=== PATIENT | female | born 1930 | race Caucasian/White ===

== ENCOUNTER 2019-01-03 20:14 | Inpatient (IN) | payer MEDICARE ==
[~2019-01-03] VITALS: Ht 165.1 cm; Wt 88.1 kg
[2019-01-03] VITALS (8 sets, daily range): BP systolic 109–159; BP diastolic 59–90
--- NOTE | ~2019-01-03 | EKG ---
[place], [place] ELECTROCARDIOGRAM REPORT NAME: WILLIS JEAN UNIT #: [id number] ROOM: 505 DOCTOR: FLORY DRAFT REPORT BIRTHDATE: [birth year] [facility] Test Date: 2019-01-03 Test Time: 22:37:50 Pat Name: WILLIS JEAN Department: Room: 505 Gender: F Chili Pepper Grinder: DISHA GIVENS : 1930 Requested By: ANNE IBARRA Order Number: [id number] Reading MD: Yanira Aponte MD Measurements Intervals [place] Rate: 74 P: CT: QRS: -63 QRSD: 155 T: 126 QT: 428 QTc: 475 Interpretive Statements Afib/flut and V-paced complexes No further analysis attempted due to paced rhythm Electronically Signed On 01-04-2019 17:31:39 PDT by Yanira Aponte MD CM:EKGRPT:ELECTROCARDIOGRAM REPORT 1731 ANNE HARMON DRAFT REPORT ANNE IBARRA DO
--- NOTE | ~2019-01-03 | EKG ---
[place], [place] ELECTROCARDIOGRAM REPORT NAME: WILLIS JEAN UNIT #: [id number] ROOM: 505 DOCTOR: FLORY DRAFT REPORT BIRTHDATE: [birth year] [facility] Test Date: 2019-01-03 Test Time: 20:30:42 Pat Name: WILLIS JEAN Department: Room: 505 Gender: F [employer] Network Analyst: : 1930 Requested By: ANNE IBARRA Order Number: [id number] Reading MD: Yanira Aponte MD Measurements Intervals [place] Rate: 88 P: 0 TX: 153 QRS: -70 QRSD: 154 T: -55 QT: 408 QTc: 494 Interpretive Statements Ventricular-paced complexes No further analysis attempted due to paced rhythm Electronically Signed On 01-04-2019 17:31:19 PDT by Yanira Aponte MD CM:EKGRPT:ELECTROCARDIOGRAM REPORT [id number] 1731 ANNE HARMON DRAFT REPORT ANNE IBARRA DO
--- NOTE | ~2019-01-03 | EKG ---
[place], [place] ELECTROCARDIOGRAM REPORT NAME: WILLIS JEAN UNIT #: [id number] ROOM: 505 DOCTOR: FLORY DRAFT REPORT BIRTHDATE: [birth year] [facility] Test Date: 2019-01-04 Test Time: 02:37:01 Pat Name: WILLIS JEAN Department: Room: 505 Gender: F Milk Deliverer: David Box : 1930 Requested By: ANNE IBARRA Order Number: [id number] Reading MD: Yanira Aponte MD Measurements Intervals [place] Rate: 69 P: 0 HI: 79 QRS: -77 QRSD: 174 T: -62 QT: 323 QTc: 346 Interpretive Statements Ventricular-paced rhythm No further analysis attempted due to paced rhythm Baseline wander in lead(s) V5 Electronically Signed On 01-04-2019 17:32:41 PDT by Yanira Aponte MD CM:EKGRPT:ELECTROCARDIOGRAM REPORT [id number] 1732 ANNE HARMON DRAFT REPORT ANNE IBARRA DO
--- NOTE | 2019-01-03 20:14 | NUR ---
PLACED PATIENT ON BIPAP PER DOCTORS ORDERS. 19/10, BU 8, 100% O2. SPO2 99%, HR 74. ALARMS ON AND FUNCTIONING
[2019-01-03 20:27] LABS: BASO # 0.1 10*3/uL (0.0-0.1); BASO % 0.3 % (0.0-1.0); EOS # 0.2 10*3/uL (0.0-0.4); EOS % 1.5 % (1.0-4.0); HEMATOCRIT 39.2 % (37.0-47.0); HEMOGLOBIN 12.3 g/dl (12.0-16.0); LYMPH # 1.6 10*3/uL (1.3-4.4); LYMPH % 10.8 % (27.0-41.0); MEAN CELL VOLUME 95.6 fl (81.0-99.0); MEAN CORPUSCULAR HGB CONC 31.4 g/dl (33.0-37.0); MEAN PLATELET VOLUME 8.9 fl (9.6-12.3); MONO # 0.9 10*3/uL (0.1-1.0); MONO % 6.3 % (3.0-9.0); NEUT # 11.6 10*3/uL (2.3-7.9); NEUT % 80.8 % (47.0-73.0); PLATELET COUNT AUTOMATED 177 10*3/uL (130-400); RED CELL DISTRI WIDTH 13.3 % (0-14.5); WHITE BLOOD COUNT 14.4 10*3/uL (4.8-10.8)
[2019-01-03 20:43] LABS: ALBUMIN 3.4 gm/dl (3.1-4.5); ALKALINE PHOSPHATASE 138 U/L (45-117); BUN 32 mg/dl (7-24); CHLORIDE 104 mmol/L (98-107); CREATININE 1.81 mg/dL (0.55-1.02); POTASSIUM 4.3 mmol/L (3.5-5.1); SGOT/AST 19 IU/L (3-35); SGPT/ALT 21 U/L (12-78); SODIUM 137 mmol/L (136-145); TOTAL PROTEIN 7.8 gm/dL (6.4-8.2)
[2019-01-03 20:44] LABS: TROPONIN I < 0.015 ng/ml (<0.045)
[2019-01-03 20:47] LABS: ACT PARTIAL THROMBO TIME 29.5 SECONDS (20.0-32.1); INTERNATIONAL NORM RATIO 1.1 (2.0-3.5)
--- NOTE | 2019-01-03 22:44 | NUR ---
BIPAP REMOVED PER ORDERS BY RESPIRATORY, PT TOLERATING WELL
[2019-01-04] VITALS (7 sets, daily range): BP systolic 98–133; BP diastolic 41–76
--- NOTE | 2019-01-04 00:45 | NUR ---
A 88 YEAR OLD FEMALE PATIENT, admitted to 5E, under the services of JOHNNY Sabillon DO with a diagnosis of HYPOXEMIA,COPD,ACUTE PULMONARY EDEMA. Chief complaint is .WORSENING SHORTNESS OF BREATH Patient arrived via CART WITH RN from ER. Monitor applied. Initial assessment completed. Vital signs taken and recorded. See assessment for past medical history, medications and allergies. Patient and/or family oriented to unit. [facility] reviewed. Clothing/patient valuable form completed. DAVY GALINDO
[2019-01-04] MEDS ORDERED: METOPROLOL SUCC25 M2 PO (01:25)
[2019-01-04] MEDS ORDERED: SEROQUEL50 MG PO (01:25)
[2019-01-04] MEDS ORDERED: CARDIZEM LA240 MG PO (01:26)
[2019-01-04] MEDS ORDERED: LASIX20 MG PO (01:27)
[2019-01-04] MEDS ORDERED: PRAVASTATIN SOD40 MG PO (01:27)
[2019-01-04] MEDS ORDERED: ISOSORBIDE MON120 MG PO (01:28)
[2019-01-04] MEDS ORDERED: LEVOXYL100 MCG PO (01:28)
[2019-01-04] MEDS ORDERED: ALDACTONE25 M1 PO (01:33)
[2019-01-04] MEDS ORDERED: NOVOLOG 70/30 M10 ML SC (01:33)
--- NOTE | 2019-01-04 10:01 | NUR ---
Occupational therapy orders receieved and OT evaluation completed in full on floor five. Patient precautions include 3L02 and TRIBE. Patient is OT evaluation only. Patient demonstrated independent ADLs, functional transfers, mobility, and feeding. Patient notified of d/c from OT orders and was agreeable. Patient and her family members did not have any questions. Per OT eval, patient to return home. Patient stated she does not need OT HH services at this time. Patient complexity is low, 64013. Thank you for the referral. Alexus Orellana, OTR/L
--- NOTE | 2019-01-04 11:28 | NUR ---
BP THIS MORNING 98/48, REPEAT BP AT THIS TIME 128/76. PER SHANTAL JEFF AND JENNIFER TO BE HELD TODAY.
--- NOTE | 2019-01-04 11:29 | NUR ---
PHYSICAL THERAPY Physical therapy screen completed. Patient's family member present in room. Pt and Pt family member reports she does her exercises diligently when she is at home. She is independent with all ADLs and ambulation using a FWW. she gets up to go to the bathroom herself. Pt and family member expressing no concerns. No PT needs at this time. Thank you, Eunice Escalona, PT, DPT
--- NOTE | 2019-01-04 13:10 | NUR ---
Director Of Orthopedics in to talk to patient. Patient states lives at HOME with ALONE. There are 2 OUTSIDE steps in the home. Physician: SHASHI Pharmacy: [facility] Home health services: NONE Patient's level of ADLs: INDEPENDENT Patient has working utilities: YES DME: OXYGEN 2L AT HS, COMPANY IS [employer] Follow-up physician's appointment after d/c: WILL BE MADE BY HOSPITALIST NURSE DIRECTOR ON DISCHARGE Does patient want to access PORTAL?: NO Discharge plan PT LIVES AT HOME ALONE AND IS INDEPENDENT IN HER CARE. PT STILL DRIVES AND IS ABLE TO CARE FOR HERSELF AT HOME. TALKED WITH PT ABOUT HOME HEALTH BUT PT REFUSES. STATES IF SHE NEEDS HELP SHE HAS FRIENDS AND FAMILY TO HELP HER. WILL CONTINUE TO FOLLOW. WILL HAVE A RIDE HOME PER PT.. MENDY THOMPSON
--- NOTE | 2019-01-04 13:17 | NUR ---
[facility] OFFICE STAFF NOTIFIED OF CONSULT RE: ARIEL
--- NOTE | 2019-01-04 14:00 | NUR ---
BEDSIDE GLUCOSE RESULT >600 X 2 TESTS, ORDERING STAT REFLEX GLUCOSE PER POLICY. PATIENT C/O SOB, SHAKING, 32 RESPIRATIONS/MINUTE, POX 91%-O2 FOUND NOT CONNECTED TO THE WALL. RECONNECTED O2 AT 2LPM PREVIOUSLY, POSITIONED WITH HOB UP, PATIENT STATES HAS MUCH RELIEF WITH THIS.
--- NOTE | 2019-01-04 14:47 | NUR ---
DR. BARTON NOTIFIED OF STAT REFLEX GLUCOSE RESULT OF 667. HE IS ENTERING NEW ORDERS.
--- NOTE | 2019-01-04 20:29 | NUR ---
Neurological: AAOX3-KIVALINA Respiratory: NONLABORED, 2L VIA NC, OLGUIN Breath sounds: DIMINISHED T/O, POOR AIR EXCHANGE Cough: NONE NOTED Cardiovascular: BLE EDEMA L<R, DENIES CP/PRESSURE, PP+ Gastrointestinal: NORMOACTIVE X4 QUADS, DENIES N/V/D/C, SOFT/NONTENDER/NONDISTENDED Genito/Urinary: DENIES DYSURIA Musculoskeketal: AMBULATORY, SKIN INTACT RESTING IN BED WITH NO C/O OR S/S OF DISTRESS NOTED AT THIS TIME BED IS LOW, LOCKED, AND CALL LIGHT IS WITHIN REACH WILL CONTINUE TO MONITOR, SEE SHIFT ASSESSMENT. MELY CASTANON A
[2019-01-05] VITALS: BP 120/70
[2019-01-05 06:28] LABS: POTASSIUM 4.2 mmol/L (3.5-5.1)
[2019-01-05 06:29] LABS: BASO % 0.1 % (0.0-1.0); HEMATOCRIT 36.4 % (37.0-47.0); HEMOGLOBIN 11.8 g/dl (12.0-16.0); MEAN CORPUSCULAR HGB 29.7 pg (27.0-31.0); MEAN CORPUSCULAR HGB CONC 32.4 g/dl (33.0-37.0); MEAN PLATELET VOLUME 9.8 fl (9.6-12.3); MONO # 0.5 10*3/uL (0.1-1.0); MONO % 3.3 % (3.0-9.0); NEUT # 14.6 10*3/uL (2.3-7.9); PLATELET COUNT AUTOMATED 178 10*3/uL (130-400); RED BLOOD COUNT 3.97 10*6/uL (4.10-5.10); RED CELL DISTRI WIDTH 13.2 % (0-14.5); WHITE BLOOD COUNT 16.2 10*3/uL (4.8-10.8)
[2019-01-05 06:33] LABS: CREATININE 1.67 mg/dL (0.55-1.02); PHOSPHOROUS 3.5 mg/dL (2.5-4.9)
[2019-01-05 07:10] LABS: MEAN CELL VOLUME 91.7 fl (81.0-99.0)
--- NOTE | 2019-01-05 09:10 | NUR ---
DR [id number] ROUNDED AND SEEN PT. NOTIFIED HIM OF PT BP 96/48 MARIALUISA,100/50 JOSUÉ.HELD METOPROLOL ANDD IMDUR. UPDATED PT MED REC. PT ACUALLY ONLY TAKE METOPROLOL 12.5 MG BID. PT "BREAKS THE PILL IN HALF".
[2019-01-05] MEDS ORDERED: DOXYCYCLINE100 M3 PO (10:05)
[2019-01-05] MEDS ORDERED: ELIQUIS5 M1 PO (10:05)
[2019-01-05] MEDS ORDERED: METOPROLOL SUCC25 M2 PO (10:05)
[2019-01-05] MEDS ORDERED: PREDNISONE10 MG PO (10:05)
--- NOTE | 2019-01-05 10:35 | NUR ---
HOME O2 ASSESSMENT: BP: 126/82, HR 83, RR 18, PULSE OX 89%-90% ON ROOM AIR AT REST. AMBULATED PATIENT IN HALLWAY, PULSE OX DECREASED TO 86% ON ROOM AIR WHILE AMBULATING. PLACED 2 L/M ON PATIENT, SAT >92% WHILE AMBULATING. POST BP: 117/98, HR 87, RR 18, PULSE OX 96% ON 2 L/M AT REST. PATIENT HAS [employer] FOR HOME OXYGEN.
--- NOTE | 2019-01-05 11:41 | NUR ---
PT CONTINUES TO STATE NO NEEDS ON DISCHARGE AT HOME. PT HAS OXYGEN AT HOME ALREADY. PLANS TO RETURN HOME ON DISCHARGE. PT IS INDEPENDENT AND DRIVES. WILL CONTINUE TO FOLLOW.
--- NOTE | 2019-01-05 11:42 | NUR ---
DR HAYWOOD ROUNDED AND SEEN PT.CLEARED FOR D/C FROM CARDIOLOGY STANDPOINT.
[2019-01-05 12:00] VITALS: BP 127/70
[2019-01-05] MEDS ORDERED: ELIQUIS2.5 M1 PO (13:42)
--- NOTE | 2019-01-05 14:30 | NUR ---
Discharge instructions reviewed with patient/family. Patient receptive and verbalizes understanding. Follow-up care arranged. Written instructions given to patient/family. INOCENTE SADLER
== END 2019-01-05 11:53 | disposition home or self-care (01) | DRG 871 ==
LOC: ED 20:14 → EDHOLD 23:54 → 5E 23:54
PROVIDERS: Emergency Medicine; Student in an Organized Health Care Education/Training Program; ADMIT Internal Medicine
PROC: 5A09357 Assistance with Respiratory Ventilation, Less than 24 Consecutive Hours, Continuous Positive Airway Pressure (ICD-10-PCS; principal; 2019-01-03)
DX: A41.9 Sepsis, unspecified organism (principal); J18.9 Pneumonia, unspecified organism; I50.23 Acute on chronic systolic (congestive) heart failure; N17.0 Acute kidney failure with tubular necrosis; J96.21 Acute and chronic respiratory failure with hypoxia; J44.1 Chronic obstructive pulmonary disease with (acute) exacerbation; J44.0 Chronic obstructive pulmonary disease with (acute) lower respiratory infection; E44.0 Moderate protein-calorie malnutrition; N18.4 Chronic kidney disease, stage 4 (severe); I25.810 Atherosclerosis of coronary artery bypass graft(s) without angina pectoris; I13.0 Hypertensive heart and chronic kidney disease with heart failure and stage 1 through stage 4 chronic kidney disease, or unspecified chronic kidney disease; E11.22 Type 2 diabetes mellitus with diabetic chronic kidney disease; I48.0 Paroxysmal atrial fibrillation; E78.5 Hyperlipidemia, unspecified; R65.20 Severe sepsis without septic shock; R74.8 Abnormal levels of other serum enzymes; I08.3 Combined rheumatic disorders of mitral, aortic and tricuspid valves; E66.9 Obesity, unspecified; Z99.81 Dependence on supplemental oxygen; Z79.4 Long term (current) use of insulin; Z88.2 Allergy status to sulfonamides; Z91.041 Radiographic dye allergy status; Z95.0 Presence of cardiac pacemaker; Z90.49 Acquired absence of other specified parts of digestive tract; Z98.49 Cataract extraction status, unspecified eye; Z95.1 Presence of aortocoronary bypass graft; Z87.891 Personal history of nicotine dependence; Z82.49 Family history of ischemic heart disease and other diseases of the circulatory system; Z79.899 Other long term (current) drug therapy; Z68.28 Body mass index [BMI] 28.0-28.9, adult